=== PATIENT | male | born 1970 | race Caucasian/White ===

== ENCOUNTER → 2019-06-12 | Outpatient (CLI) | payer OTHER ==
--- NOTE | 2019-06-13 17:51 | REP ---
Clinical: Dyspnea. Technique: Axial noncontrast images from the thoracic inlet to the upper abdomen with coronal and sagittal re-formations. Findings: The bilateral lung alcala are well-aerated and clear. No consolidation, significant nodule, or mass lesion is appreciated. No effusion. No pneumothorax. Tracheobronchial tree is patent. No obvious adenopathy. Mediastinum demonstrates normal thoracic aorta, pulmonary vasculature and heart/pericardium. Small hiatal hernia at the gastroesophageal junction cannot be excluded. Limited upper abdomen demonstrates normal bilateral adrenal glands. Impression: 1. No acute mediastinal or pleuroparenchymal process. 2. Possible small hiatal hernia. Electronically Signed by James Anaya MD 06/13/2019 05:43 P
== END ==
LOC: M RAD 12:34
PROVIDERS: ATTEND Nurse Practitioner Family
DX: R06.00 Dyspnea, unspecified (principal)

== ENCOUNTER → 2019-08-06 | Outpatient (CLI) | payer OTHER ==
[~2019-08-06] MED LIST: METHACHOLINE KIT (J7674) INH ONE
--- NOTE | 2019-08-06 09:05 | PFTRPT ---
Visit Date: 08/06/2019 Referring Doctor: RAÚL BOLAND Height: 66.00 Inches Weight: 218.00 Lbs BSA: 2.07 Diagnosis: R05 Study of excellent technical quality. Under protocol, methacholine was administered. At a dose of 10 mg (63.75 CDUs), a 26% decline in the FEV1 was noted. PC of 6.44 is significant. Flow rates did return to baseline postbronchodilator administration. IMPRESSION: Positive methacholine challenge study. MTDD
== END ==
LOC: M CARPUL 08:04
PROVIDERS: ATTEND Nurse Practitioner Family
DX: R05 Cough (principal)
CPT/HCPCS: 94070; J7674